=== PATIENT | male | born 1980 | race Two or more races ===

== ENCOUNTER 2025-05-24 12:22 | Inpatient (IN) | payer MEDICAID ==
[~2025-05-24] VITALS: Ht 167.6 cm; Wt 84.0 kg
--- NOTE | 2025-05-24 13:16 | Physician Documentation ---
History of Present Illness ~ Chief Complaint: Rectal Bleeding Stated Complaint: RECTAL BLEEDING Time Seen by MD: 12:25 Mode of Arrival: EMS HPI This is a 45-year-old gentleman transferred to us from [facility]. He originally went to the outside facility with the complaints of dizziness, monocular vision loss. Also reported a proximally one year of rectal bleeding with the blood mixed with the stool. Denies any weight loss. The dizziness, lightheadedness, sensation of impending doom and near-syncope were new in the unusual for him. This occurred while he was driving. No focal deficits reported. No palliating or aggravating factors. Now resolved. With respect to her rectal bleeding he states that it has been persistent, getting worse. Has not has a chance to check it out. Per record reviewed from outside facility 45-year-old the male with no significant medical history, presenting to the emergency department with multiple complaints. Patient most notably has a had increased dizziness, possibly over the last month, but more noticeable over the last week. Patient has had mild intermittent rectal bleeding over the last month. He has significant other at bedside states that he had some rectal bleeding as far back as one year. However over the last week he has a began experiencing crampy abdominal pain that is significantly worse after eating. After eating he states it is diffuse bright red blood per rectum. He will have bowel movements and consists only of bright red blood. He has had progressive dizziness associated with the episodes. Four days ago he began having visual changes in his right eye. He thought it was related to swimming, denies any trauma. He states that he has a black out blurry vision to the lower half of his right visual field. He denies any lateralized weakness or numbness. Denies any coordination deficits of the gener ally dizziness. Denies any chronic alcohol use, chronic NSAID use. No hemoptysis. No fever or chills. No abdominal pain. At the outside facility patient has a received laboratory workup shows anemia with hemoglobin of 9.2. Metabolic panel was unremarkable. Troponin was negative. Coagulation panel was normal. Falling radiologic studies were done: Chest x-ray showed possible left midlung and 12 mm nodule versus rib nodule. CT of the abdomen and pelvis with contrast shows no active bleeding but the showed 7 cm rectal mass. No bowel obstruction. CT head without contrast shows mild all neurocysticercosis without any acute disease. Evidently patient had a protracted stay in the emergency department and had undergone MRI and MRA. MRA showed neck vessels without occlusion, dissection or readily apparent high-grade stenosis. MRI brain without contrast was also obtained showing no acute intracranial pathology. MRA brain also showed no vessel occlusion. The patient was transferred to us for GI consultation Medication Reconciliation Allergies: Coded Allergies: No Known Allergies (Unverified , 05/24/25) Review of Systems ROS 10 point review of systems was performed and unless noted above in HPI is negative for acute process/complaint. Physical Exam Vital Signs: Temperature: 98.3, Source: Oral, Heart Rate: 58, Respiratory Rate: 18, BP: 125/77, Pulse Oximetry: 98, Weight: 84.000 Physical Exam GENERAL: Awake, alert, oriented, GCS 15, no apparent distress, non-toxic appearing, answers questions, follows commands appropriately. HEENT: Atraumatic, normocephalic, pupils equal, extraocular muscles intact, sclerae anicteric, mucus membranes moist, oropharynx is clear, no stridor. NECK: supple, full active range of motion, trachea midline, no thyromegaly, no lymphadenopathy, no JVD. CARDIOVASCULAR: regular rate/rhythm, no murmurs/gallops/rubs, Pulses are 2+ in all extremities and symmetric. Capillary refill less than 2 seconds. PULMONARY: Nonlabored, good air movement ,no respiratory distress, speaking in full sentences, clear to auscultation bilaterally, no wheezing, no ronchi, no rales, no accessory muscle use. GASTROINTESTINAL: Soft, non-tender, non-distended, normal active bowel sounds, no organomegaly, no pulsatile masses, no CVA tenderness. NEUROLOGIC: Lucid with normal mental status. Normal facial symmetry. Moves all extremities symmetrically and with purpose. No truncal ataxia. Speech is fluid without evidence of dysarthria or aphasia, no focal deficits appreciated. MUSCULOSKELETAL: There is full range of motion of all extremities. There is no joint pain or joint swelling or joint erythema. There is no muscle pain or tenderness or swelling. EXTREMITIES: warm, well-perfused, no cyanosis, no clubbing, no edema, no acute deformities. Skin: warm, dry, no rashes or lesions, no jaundice, no petechiae orpurpura. No ecchymosis. PSYCHIATRIC: Normal affect, normal insight, normal concentration. Focused exam: [] No guarding or rebound Progress Results/Orders Results/Orders Vital Signs 05/24/25 05/24/25 12:24 12:29 Temp 98.3 Pulse 58 Resp 18 18 B/P (MAP) 125/77 Pulse Ox 98 Medical Decision Making Findings Facility Status: ED Holds, RME process The plan was discussed with the patient, who demonstrates clear understanding of the plan and is in agreement with the plan unless otherwise noted in the chart. All questions have been answered, all concerns were addressed unless otherwise documented. I was available throughout their ED stay for frequent reassessment and questions. Differential Diagnoses (considered and possible or likely): [Rectal mass, concerning for malignancy, anemia, not requiring transfusion, no evidence of hemorrhagic shock, monocular vision loss in the right eye, neurocysticercosis] ??Differential Diagnoses (considered and unlikely, not requiring evaluation currently): [No evidence of traumatic injury] MDM Data Please see HPI for the following: Independent Historians and external Records Review. Historian: [Patient] Independent Historians: ?[Extensive record review from the outside facility] Medication Management: [Reviewed medication list] Social History and determinants: [Reviewed] Please see the body of the note for the following: Any independent interpretations of ECG, imaging studies. All vitals signs/haemodynamics, ordered tests were independently reviewed and interpreted by myself. Nursing triage complaint and vitals reviewed, additional nursing notes were reviewed as available and I agree unless otherwise noted or documented in contradiction in the chart Vital Signs: Independently reviewed Labs: Independently interpreted Imaging: Independently interpreted Old Medical Records: Independently reviewed, see HPI for relevant summary and information Pulse Oximetry: [98%] interpreted as [normal on room air] by me [Door Opener: [Regular Rate, Regular rhythm, no ectopy, NSR] reviewed and interpreted by me] Additionally notably showing: [Hemodynamically stable] Tests considered but not ordered include: [Repeat imaging does not appear to be necessary] Social Determinants of Health Impact: Patient was evaluated in [facility] [place] access to healthcare due to below par ratio of patient to medical providers. [] Comorbid Conditions Impacting Present Evaluation and Care/Treatment: [None k nown] Management Discussions with other Healthcare Providers: [Hospitalist regarding admission] Treatment and Disposition Medication Management (Given or considered): [Transfusion does not appear to be necessary]. See EMR for details Consideration for Hospitalization/Escalation/Deescalation of Care: Admission for observation has been considered, hand appears to be necessary for further evaluation of his rectal bleeding, mass, GI consultation ?ED Course:?[No clinical deterioration] ?Shared decision making:?[] Code status:?FULL Please see the full Electronic Medical Record for full details of nursing documentation, medications list, other records of complete past medical history and conditions, vital signs, laboratory studies, and any radiologic study in terpretations by radiologists. Portions of this note were completed using [employer] dictation software and as a result there may exist minor errors in spelling. I have reviewed elements of past family and social history and agree as included in note. Departure Disposition: 09 ADMITTED INPATIENT Admitted to Inpatient Unit: to hospitalist Impression: Primary Impression: Lower GI bleed Additional Impressions: Bright red blood per rectum Rectal mass Neurocysticercosis Visual field defect of right eye Condition: Stable Referrals: NO PRIMARY CARE PROVIDER (PCP) Signature Scribe Signature: No scribe Attestation: This note accurately reflects clinical decisions, work performed by myself, DO BEHZAD Lawson NICHOLAS M DO May 24, 2025 13:16
[2025-05-24 13:47] LABS: MEAN PLATELET VOLUME 9.4 FL (7.4-10.4); RED CELL DISTRIBUTION WIDTH 17.3 % (11.5-14.5)
[2025-05-24] MEDS ORDERED: ondansetron/PF 4mg/2ml inj IV PRN (14:05)
[2025-05-24] MEDS ORDERED: magnesium sulf-water 2g/50mL 50 ML IV PRN (14:05)
[2025-05-24] MEDS ORDERED: magnesium sulf-water 4G/100mL 100 ML IV PRN (14:05)
[2025-05-24] MEDS ORDERED: magnesium Cl slow-release 64mg tablet PO PRN (14:05)
[2025-05-24] MEDS ORDERED: potassium Cl 40MEQ/1/2NS 520ml 520 ML IV PRN (14:05)
[2025-05-24] MEDS ORDERED: potassium Cl 20 mEq SR tablet PO PRN ×2 (14:05)
[2025-05-24 14:14] LABS: APTT 26 SECONDS (22-32); INR 1.1 INR
[2025-05-24] MEDS: PEG 3350/Na sulf,bicarb,Cl/KCl oral sol 4 liter bottle PO ONE ×2 (14:14→14:35)
[2025-05-24 14:17] LABS: CREATININE 0.95 MG/DL (0.60-1.10); PHOSPHORUS 3.7 MG/DL (2.3-4.5); TOTAL CARBON DIOXIDE 26.9 MMOL/L (24-32); eCRCL 88 ML/MIN; eGFR 85 ML/MIN
[2025-05-24] MEDS: normal saline 1000ml 1,000 ML IV SCH (14:24)
--- NOTE | 2025-05-24 14:53 | HISTORY AND PHYSICAL-Residence ---
History & Physical Providers to CC Resident Creating Document: MAYRA JACKSON RES CC: ISABELLE EUCEDA MD ~ History of Present Illness Primary Medical Doctor: none Reason for Admit\Complaint: hematochezia for a month History of Present Illness 45-year-old male with history of gout came as a transfer from [facility] for further evaluation of hematochezia. Patient symptoms started with one month of blood in stools, for the past one month he also noticed the is having 3-4 episodes of bowel movements a day every time after food intake. Stated blood in stools usually blood mixed in his stools, no pain during defecation and denies hematemesis/melena. Denies abdominal pain or tenesmus or fever. No Previous history of IBD, no recent history of travel. Denies family history of colon cancer. no Recent antibiotic use For the past three days he also noticed he is getting very lethargic, tired, and lightheadedness. Yesterday when he was swimming he noticed vision loss in the right eye, currently he still has vision loss in the lower field of the right eye. He denies any weakness of the extremities. No other neurological complaints. For these complaints he went to [facility] where he had undergone CT brain which showed chronic neurocysticercosis and MRI brain and MRA were normal. CT abdomen/pelvis showed rectal mass and patient is transferred here for further evaluation. Patient was born in the [facility] and he lived in [place] for sometime. He said he has never been to any [place]. He had no previous history of seizures Allergies: Coded Allergies: No Known Allergies (Unverified , 05/24/25) Past Medical History Past Medical History Gout taking colchicine, prednisolone and allopurinol Past Surgical History Surgical History Comment None Past Social History Social History Comment Nonsmoker, occasional alcohol use, denies illicit drug use, lives in [place] ROS ROS ROS Constitutional: Positive for fatigue, dizziness, decreased appetite HEENT: No blurring of the vision, No sore throat, epistaxis, tinnitus Cardiovascular: No chest pain/discomfort, palpitations, syncope. No pedal edema Respiratory: No sob, cough,, hemoptysis Gastrointestinal: Positive for hematochezia No abdominal pain, nausea, vomiting. No diarrhea, constipation, melena. Genitourinary: No frquency, urgency, incontinence, nocturia. No dysuria, hematuria Musculoskeletal: No arthralgia, myalgia Endocrine: No polydipsia, polyuria. No heat or cold intolerance Neurologic: No headache, vertigo. No weakness, numbness or tingling of extremities Psychiatric: No hallucinations/delusions, no anhedonia, no suicidal ideation\ Hematologic: No bleeding or bruises Reviewed in full. All negative except for pertinent positives in HPI Exam Vitals: Vital Signs Date Time Temp Pulse Resp B/P (MAP) Pulse Ox O2 Delivery O2 Flow Rate FiO2 05/24/25 12:29 18 05/24/25 12:24 98.3 58 98 General: General: Adult male, AAO x4, not in apparent distress Head: Normocephalic with an atraumatic Eyes: Pupils- 3mm, reacting to light, conjunctiva- anicteric Nose and throat: No polyps, septum- normal, no mucosal ulcers Neck: Supple, no lymphadenopathy, no carotid bruit Respiratory: No use of accessory muscles of respiration, Bilateral normal vesiscular breath sounds heard. No wheeze, rhochi or creps Cardiac: S1-S2 heard, rythm regular, no gallop/murmur Abdomen: non distended, no tenderness, no organomegaly, bowel sounds- heard Extremities: no clubbing, no pedal edema, no deformities, peripheral pulses- 2+ Skin: warm and dry, no rash, no purpura Neuro: Right eye lower field vision loss, No focal deficit, gross other cranial nerve exam- normal Diagnostic Data Last Recorded Lab Results: 05/24/25 1335 05/24/25 1335 Diagnostic Data: Laboratory Tests Test 05/24/25 13:35 Prothrombin Time 11.4 SECONDS (9.0-12.0) INR International Normalized Ratio 1.1 INR Activated Partial Thromboplast Time 26 SECONDS (22-32) Coagulation Comments Advance Care Planning Advanced Care plannin - 30 Minutes (Code status is discussed with him and he opted for full code) Additional Plan Hematochezia Rectal mass -presented with one month of hematochezia, painless -ESR and CRP-normal -likely suspect noninflammatory causes -CT abdomen/pelvis showed 7 x 6 x 5 cm rectal mass, normal liver -Dr. Falcon, GI consulted, recommended GoLYTELY prep and colonoscopy with rectal mass biopsy tomorrow. Appreciate recs Microcytic hypochromic Anemia -H&H 9.7/, low MCV MCH and increased RDW -suspect iron-deficiency secondary to bleeding -anemia might be likely causing dizziness, lightheadedness and fatigue -follow up on iron profile -follow up on peripheral smear -monitor H&H and if hemoglobin is less than seven, we will plan for PRBC transfusion Right monocular vision loss Chronic neurocysticercosis -presented with monocular vision loss which was partially improved, CT brain normal, MRI showed chronic neurocysticercosis, no infarct and MR angiogram of the head and neck was normal. -follow up on 2D echo -continue neuro checks -patient needs ophthalmology evaluation -we will consult Dr. Yuan, ID for opinion on chronic neurocysticercosis Probable lung nodule -chest x-ray done at the outside hospital showed possible left lung 12 mm nodule versus 7th rib shadow, will repeat cxr -no h/o smoking Code Status: Full code Line/tube: PIV DVT prophylaxis: SCD Nutrition: Clear liquid diet, NPO after midnight PT: No Prognosis: Guarded Disposition: Continue care in ortho floor Mayra Jackson MD IM PGY-3 resident Date of Service: May 24, 2025 Billing Provider: ISABELLE EUCEDA MD,MAYRA, RES May 24, 2025 14:53
[2025-05-24 15:06] LABS: % IRON SATURATION 4 % (11-46)
[2025-05-24] MEDS: PERFLUTREN PROTEIN-A MICROSPHR (Optison) 0.22 MG/ML 3ML VIAL IV ONE (15:16)
[2025-05-24 15:23] LABS: LEUKOCYTE ESTERASE ,URINE NEGATIVE (Neg); NITRITES, URINE NEGATIVE (Neg); OCCULT BLOOD,URINE NEGATIVE (Neg)
[2025-05-24 15:29] LABS: UA COLLECTION TYPE VOIDED
--- NOTE | 2025-05-24 15:42 | RADIOLOGY REPORT ---
CHEST RADIOGRAPH Indication: left lung nodule Technique: Single frontal view of the chest was obtained Comparison: None FINDINGS: Lines and Tubes: None Lungs: 11 mm left upper lobe lung nodule. Pleura: No effusion. No pneumothorax. Cardiomediastinal contours: Unremarkable Bones: No acute osseous abnormality. IMPRESSION: 11 mm left upper lobe lung nodule. CT suggested
[2025-05-24 15:46] LABS: URINE AMPHETAMINE SCREEN NEGATIVE (Neg); URINE BARBITUATE SCREEN NEGATIVE (Neg); URINE BENZODIAZEPINES SCREEN NEGATIVE (Neg); URINE CANNABINOID SCREEN NEGATIVE (Neg); URINE COCAINE SCREEN NEGATIVE (Neg); URINE METHADONE SCREEN NEGATIVE (Neg); URINE OPIATE SCREEN NEGATIVE (Neg); URINE PHENCYCLIDINE SCREEN NEGATIVE (Neg)
[2025-05-24] MEDS ORDERED: iohexol 300mg/ml 100ml inj. ONE (17:49)
[2025-05-24 18:00] VITALS: BP 127/74; PULSE 50; RESP 16; TEMP 97.8; O2SAT 100
--- NOTE | 2025-05-24 18:26 | RADIOLOGY REPORT ---
EXAM: CT CT CHEST W/ IV CONTRAST History: left lung mass Comparison Study: None TECHNIQUE: A digital scooping machine tender image was obtained. During the uneventful, intravenous administration of c ontrast material, multislice data acquisition was obtained through the chest. The data set was subseq uently reconstructed into axial, coronal, and sagittal images. Radiation Dose : CTDI vol 17.62 mGy, DLP 695.07 mGy*cm. Findings: Lungs: Left upper lobe calcified granuloma. The lungs are otherwise clear. Pleura: Unremarkable Heart/Great vessels: No cardiomegaly or pericardial effusion. Mediastinum: Unremarkable Soft tissues/Bones: Unremarkable. Bone island in the vertebral body of T8. The partially visualized upper abdomen is within normal limits. Impression: 1. No acute cardiopulmonary disease. 2. Left upper lobe calcified granuloma.
[2025-05-24] MEDS ORDERED: NO HOME MEDS (19:52)
[2025-05-24 20:00] VITALS: RESP 16; O2SAT 100
[2025-05-24] MEDS: docusate sod 100mg capsule PO SCH (20:00)
[2025-05-24] MEDS: K and/or MAG REPLACEMENT MC SCH (20:00)
[2025-05-24 22:00] VITALS: BP 104/68; PULSE 57; RESP 16; TEMP 97.8; O2SAT 100
[2025-05-25] VITALS (16 sets, daily range): BP systolic 82–117; BP diastolic 45–69; PULSE 10–64; RESP 14–60; TEMP 97.9–98.7; O2SAT 97–100
[2025-05-25 03:41] LABS: MEAN PLATELET VOLUME 9.8 FL (7.4-10.4); RED CELL DISTRIBUTION WIDTH 17.4 % (11.5-14.5)
[2025-05-25 03:51] LABS: INR 1.2 INR
[2025-05-25 04:06] LABS: CHOL/HDL RATIO 4.7 (0.00-4.99); CREATININE 0.92 MG/DL (0.60-1.10); LDL CHOLESTEROL 109 MG/DL (50-100); TOTAL CARBON DIOXIDE 27.3 MMOL/L (24-32); eCRCL 91 ML/MIN; eGFR 89 ML/MIN
--- NOTE | 2025-05-25 04:06 | CONSULTATION ---
DATE OF CONSULTATION: 05/24/2025 DICTATING PHYSICIAN: Ramakrishna Hernandez MD REASON FOR CONSULTATION: Rectal bleeding and an abnormal CT scan. HISTORY OF PRESENT ILLNESS: The patient is 45 years old who apparently has been having rectal bleeding with every bowel movement for the past month. He described this as bright red blood. He had not sought medical attention until yesterday. Yesterday, he felt dizzy and weak, and he came to the [facility] in [place] where he was worked up and sent over here. He had a CT scan of the abdomen which showed a 7 x 5 x 3 cm mass; otherwise, the CT scan of the abdomen was normal. CT of the head was also normal. He is admitted for evaluation of GI bleeding and possible rectal mass. PAST MEDICAL HISTORY: Is essentially noncontributory. FAMILY HISTORY: Noncontributory. PERSONAL HISTORY: Noncontributory. REVIEW OF SYSTEMS: A 12-point review of systems same as history of present illness. PHYSICAL EXAMINATION: GENERAL: He is awake, alert, appears to be in no apparent distress. VITAL SIGNS: Normal. HEART: Normal. LUNGS: Normal. ABDOMEN: Soft, nontender. No masses. No organomegaly. Bowel sounds are present. EXTREMITIES: Reveal no clubbing, cyanosis, or edema. RECTAL: Deferred. LABORATORY VALUES: Hemoglobin 9.7, MCV 72, platelet count 250. Coagulation profile normal. Chemistries essentially unremarkable, and as mentioned earlier, CT scan done in [place] did show a rectal mass. IMPRESSION: A 45-year-old gentleman comes in with rectal bleeding for about a month and seems to have a rectal mass as per imaging study. RECOMMENDATIONS: Colonoscopy to further evaluate, confirm, and obtain biopsy to rule out rectal cancer. The risks and benefits explained, understands and wishes to proceed. GoLYTELY prep was ordered to be started right away, so he can be ready for the colonoscopy tomorrow. Ramakrishna Hernandez MD TID: [id number] RECEIPT: [id number] MARTIN/VICKY
[2025-05-25] MEDS ORDERED: ondansetron/PF 4mg/2ml inj IV PRN (09:20)
[2025-05-25] MEDS ORDERED: midazolam 1 mg/ML 2ml injection ONE (09:50)
[2025-05-25] MEDS ORDERED: fentaNYL/PF 50MCG/1 ML 2ML syringe ONE (09:50)
[2025-05-25] MEDS ORDERED: simethicone 40mg/0.6ml oral drops 30ml ONE (09:54)
[2025-05-25] MEDS ORDERED: propofol inj 20 ML IV ONE ×2 (10:36)
[2025-05-25] MEDS: ringers solution, lacted 1,000 ML IV SCH (10:37)
--- NOTE | 2025-05-25 12:00 | CONSULTATION REPORT - RESIDENT ---
Consult Providers to CC Resident Creating Document: CLAUDIO IVORY CC: PEYTON YUAN MD History of Present Illness Reason for Admit\Complaint: Bloody stools History of Present Illness Patient is a 45-year-old male with no significant past medical history other than gout who came to the ED due to bloody stools. Patient reports that he has been experiencing daily episodes of bloody stools for about one month, he denies any abdominal pain, nausea, vomiting, diarrhea, fever or chills. In addition, patient reports that for the past 2 weeks he has been experiencing episodes of dizziness, described as spinning sensation, as well as vision loss in in the lower half of his right eye. He denies similar symptoms in the past, he also denies headaches or ocular pain or any focal weakness. Patient underwent CT scan of the head at [facility], which apparently showed multiple calcified lesions possibly consistent with neurocysticercosis. CT scan of the chest also showed a calcified lesion on the left. ID has been consulted for further evaluation and management in this regard. Allergies: Coded Allergies: No Known Allergies (Unverified , 05/24/25) Home Medications Home Medications Active Reported No Home Medications (Home Med List) Each Past Medical History Past Medical History Gout Past Surgical History Surgical History Comment None Past Social History Social History Comment Nonsmoker, occasional alcohol use, denies illicit drug use, lives in [facility] All systems were reviewed and found negative except for pertinent positives mentioned in HPI Exam Vitals: Vital Signs Date Time Temp Pulse Resp B/P (MAP) Pulse Ox O2 Delivery O2 Flow Rate FiO2 05/25/25 11:43 Room Air 05/25/25 11:10 11 53 97/63 (74) 98 0.0 05/25/25 10:24 97.5 General: General: awake, alert oriented to place, time, and person HEENT: No pallor present, no icterus, moist mucous membranes Neck: No masses and tenderness Resp: Unlabored. Lungs clear to auscultation bilaterally. Chest: Normal expansion Cardiovascular: Regular Rate and rhythm, normal S1 and S2 without murmur, rub or gallop Abdomen: Soft and nontender, no organomegaly, no guarding and rigidity, bowel sounds present Neuro: No focal weakness in the upper and lower limb muscles, power of the muscles 5/5 bilateral upper and lower extremities, normal reflexes bilaterally. Cranial nerves intact Extremities: No cyanosis,clubbing or edema Skin: Warm and Dry. No lesions Psych: Normal affect Diagnostic Data Last Recorded Lab Results: 05/25/2522405/25/25224 Diagnostic Data: Laboratory Tests Test 05/24/25 13:35 05/25/25 02:25 Activated Partial Thromboplast Time 26 SECONDS (22-32) Prothrombin Time 11.8 SECONDS (9.0-12.0) INR International Normalized Ratio 1.2 INR Coagulation Comments Additional Plan Brain calcified lesions, possible old neurocysticercosis Acute visual impairment, right eye Left upper lung calcified lesion Rectal bleeding Rectal mass Patient with a 4-week history of rectal bleeding and possibly unrelated right eye partial vision loss No known history of neurocysticercosis and questionable history of travel abroad during childhood Does report pork consumption throughout his life CT head shows a few cortical calcifications CT chest shows left upper lobe calcified granuloma Lung calcified nodule is an unusual finding for cysticercosis, therefore, will rule out TB and coccidioidomycosis In view of acute vision impairment, will also rule out STDs, including HIV and Syphilis Taenia Solium serology ordered Patient will need ophthalmology Going for colonoscopy today by Dr. Falcon No need for any specific antimicrobial treatment at this time. Will decide further management based on above tests. Above plan discussed in detail with Dr. Yuan Disposition: Continue management per gastroenterology. Will await further testing. No further treatment necessary at this point from ID standpoint Claudio Cotter MD Internal Medicine Resident PGY-2 Date of Service: May 25, 2025 Billing Provider: PEYTON YUAN MD, LEONARDO LUIS May 25, 2025 12:00 PEYTON YUAN MD May 25, 2025 21:41
--- NOTE | 2025-05-25 18:37 | PROGRESS NOTE- Residence ---
Progress Note - Resident Providers to CC Resident Creating Document: OLI JACKSON RES CC: ISABELLE EUCEDA MD ~ Antibiotic Timeout Antibiotic Ordered?: No Subjective Patient is seen today morning he had undergone a colonoscopy which showed rectal mass. Informed to the patient and his fiancee regarding the findings. And referral was sent to [facility]. Objective Vital Signs Date Time Temp Pulse Resp B/P (MAP) Pulse Ox O2 Delivery O2 Flow Rate FiO2 05/25/25 12:30 57 107/64 (78) 05/25/25 11:43 Room Air 05/25/25 11:10 53 98 0.0 05/25/25 10:24 97.5 Result Diagram: 05/25/2522405/25/25224 General: Adult male, AAO x4, not in apparent distress Head: Normocephalic with an atraumatic Eyes: Pupils- 3mm, reacting to light, conjunctiva- anicteric Nose and throat: No polyps, septum- normal, no mucosal ulcers Neck: Supple, no lymphadenopathy, no carotid bruit Respiratory: No use of accessory muscles of respiration, Bilateral normal vesiscular breath sounds heard. No wheeze, rhochi or creps Cardiac: S1-S2 heard, rythm regular, no gallop/murmur Abdomen: non distended, no tenderness, no organomegaly, bowel sounds- heard Extremities: no clubbing, no pedal edema, no deformities, peripheral pulses- 2+ Skin: warm and dry, no rash, no purpura Neuro: Right eye lower field vision loss, No focal deficit, gross other cranial nerve exam- normal Coagulation Studies Laboratory Tests Test 05/24/25 13:35 05/25/25 02:25 Activated Partial Thromboplast Time 26 SECONDS (22-32) Prothrombin Time 11.8 SECONDS (9.0-12.0) INR International Normalized Ratio 1.2 INR Coagulation Comments Assessment Assessment 45-year-old male with history of gout came as interferon satiety transfer from [facility] for further evaluation of hematochezia for a month Plan Plan Hematochezia Rectal mass- malignancy unable to exclude -presented with one month of hematochezia, painless -ESR and CRP-normal -likely suspect noninflammatory causes -CT abdomen/pelvis showed 7 x 6 x 5 cm rectal mass, normal liver -colonoscopy done by Dr. Falcon on 05/25/2025, showed rectal mass near the sphincter and biopsy was done. -referral sent to [facility] for radiation for rectal mass Microcytic hypochromic Anemia/iron-deficiency anemia secondary to lower GI bleed -H&H did not 0.9/28, low MCV MCH and increased RDW -suspect iron-deficiency secondary to bleeding -anemia might be likely causing dizziness, lightheadedness and fatigue -iron low, TIBC high, transferrin saturation low, with ferritin of six likely iron-deficiency anemia -monitor H&H and if hemoglobin is less than seven, we will plan for PRBC transfusion -started on IV Ferrlecit 125 mg once daily -start on p.o. iron at the time of discharge Right monocular vision loss Chronic neurocysticercosis -presented with monocular vision loss which was partially improved, CT brain normal, MRI showed chronic neurocysticercosis, no infarct and MR angiogram of the head and neck was normal. -spoke with Dr. Gutierrez Ophthalmology and he recommended patient needs outpatient ophthalmology evaluation to exclude retinal detachment -Dr. Yuan ID consulted for neurocysticercosis, recommended tinea Sodium serology and HIV and syphilis were acute vision impairment Left lung calcified lung nodule -follow up on TB and coccidioidomycosis serologies as per ID recommendations Code Status: Full code Line/tube: PIV DVT prophylaxis: SCD Nutrition: low Fiber diet PT: No Prognosis: Guarded Disposition: Continue care in [facility], [place] tomorrow on p.o. iron and follow up with [facility], pending biopsy Oli Jackson MD IM PGY-3 resident Date of Service: May 25, 2025 Billing Provider: ISABELLE EUCEDA MD, HARIVARSHA, RES May 25, 2025 18:37
[2025-05-25] MEDS: sodium ferric gluc complex inj 125 MG in normal saline 100ml IV soln 100 ML IV SCH (18:55)
[2025-05-26 05:14] LABS: MEAN PLATELET VOLUME 9.9 FL (7.4-10.4); RED CELL DISTRIBUTION WIDTH 17.2 % (11.5-14.5)
[2025-05-26 05:20] LABS: INR 1.2 INR
[2025-05-26 05:38] LABS: CREATININE 0.90 MG/DL (0.60-1.10); TOTAL CARBON DIOXIDE 26.6 MMOL/L (24-32); eCRCL 93 ML/MIN; eGFR > 90 ML/MIN
[2025-05-26] MEDS ORDERED: DOCU100C40 PO (07:39)
[2025-05-26] MEDS ORDERED: FERR324T4 PO (07:39)
[2025-05-26] MEDS ORDERED: ASCO500C17 PO (07:39)
[2025-05-26 08:00] VITALS: RESP 16; O2SAT 98
[2025-05-26 10:24] LABS: HIV ANTIBODY 1&2 RAPID NON-REACTIVE (Neg)
--- NOTE | 2025-05-26 14:52 | PROGRESS NOTE- Residence ---
Progress Note - Resident Providers to CC Resident Creating Document: CLAUDIO IVORY CC: PEYTON YUAN MD ~ Antibiotic Timeout Antibiotic Ordered?: No Subjective Patient was seen and examined this morning. He reports to be feeling well. Denies any significant abdominal pain. Continues with right eye vision changes Objective Vital Signs Date Time Temp Pulse Resp B/P (MAP) Pulse Ox O2 Delivery O2 Flow Rate FiO2 05/26/25 08:00 16 98 Room Air 0.0 05/25/25 22:00 98.6 58 104/62 (76) Result Diagram: 05/26/2531605/26/25316 General: awake, alert oriented to place, time, and person HEENT: No pallor present, no icterus, moist mucous membranes Neck: No masses and tenderness Resp: Unlabored. Lungs clear to auscultation bilaterally. Chest: Normal expansion Cardiovascular: Regular Rate and rhythm, normal S1 and S2 without murmur, rub or gallop Abdomen: Soft and nontender, no organomegaly, no guarding and rigidity, bowel sounds present Neuro: No focal weakness in the upper and lower limb muscles, power of the muscles 5/5 bilateral upper and lower extremities, normal reflexes bilaterally. Right eye with deficient visual field at medial lower quadrant. Left eye visual field appears to be normal. Extremities: No cyanosis,clubbing or edema Skin: Warm and Dry. No lesions Psych: Normal affect Coagulation Studies Laboratory Tests Test 05/24/25 13:35 05/26/25 03:17 Activated Partial Thromboplast Time 26 SECONDS (22-32) Prothrombin Time 11.8 SECONDS (9.0-12.0) INR International Normalized Ratio 1.2 INR Coagulation Comments Plan Plan Brain calcified lesions, possible old neurocysticercosis Acute visual impairment, right eye Left upper lung calcified lesion Rectal bleeding Rectal mass Patient with a 4-week history of rectal bleeding and possibly unrelated right eye partial vision loss No known history of neurocysticercosis and questionable history of travel abroad during childhood Does report pork consumption throughout his life CT head shows a few cortical calcifications CT chest shows left upper lobe calcified granuloma Lung calcified nodule is an unusual finding for cysticercosis, therefore, will rule out TB and coccidioidomycosis. Awaiting serology In view of acute vision impairment, will also rule out STDs, including HIV and Syphilis. HIV is negative Taenia Solium serology ordered Underwent colonoscopy which revealed a large, likely cancerous rectal mass. Awaiting biopsy results No need for any specific antimicrobial treatment at this time. Will decide further management based on above tests. Ok to DC from ID standpoint. Will call patient with serology results Patient is being referred to [facility] Will see Dr Gutierrez on outpatient Above plan discussed in detail with Dr. Yuna Disposition: Continue management per gastroenterology. No further treatment necessary at this point from ID standpoint Claudio Cotter MD Internal Medicine Resident PGY-2 Date of Service: May 26, 2025 Billing Provider: PEYTON YUAN MD, LEONARDO LUIS May 26, 2025 14:52 PEYTON YUAN MD May 26, 2025 18:08
--- NOTE | 2025-05-26 14:52 | DISCHARGE SUMMARY-Residence ---
Discharge Summary Providers to CC Resident Creating Document: OLI JACKSON RES CC: ISABELLE AVILA MD ~ Discharge Summary Assessment 45-year-old male with history of gout came as interfacility transfer from [facility] for further evaluation of hematochezia for a month Admission Diagnosis: hematochezia Hospital Course DATE OF ADMISSION: 05/24/2025 DATE OF DISCHARGE: 05/26/2025 Discharge Diagnosis\Comment: Hematochezia Rectal mass- malignancy unable to exclude Microcytic hypochromic Anemia/iron-deficiency anemia secondary to lower GI bleed Right monocular vision loss Chronic neurocysticercosis Left lung calcified lung nodule Operations\Procedures: Colonoscopy by Dr. Falcon on 05/25/2025 Consultants: Dr. Falcon, gastroenterology Dr. Yuan, infectious Disease Dr. Gutierrez, ophthalmology Complications: none Condition on DC: Stable New Medications: Ascorbic Acid (Vitamin C) 500 Mg Capsule 1 CAP PO DAILY for 30 Days, #30 CAP 0 Refills Ferrous Sulfate (Ferrous Sulfate) 324 Mg (65 Mg Iron) Tablet.dr 1 TAB PO DAILY for 30 Days, #30 TAB 0 Refills Docusate Sodium (Docusate Sodium) 100 Mg Caps 100 MG PO BID PRN for constipation for 10 Days, #20 CAP Continued Medications: Home Med List (No Home Medications) Each Discharge Summary: 45-year-old male with history of gout came as a transfer from [facility] for further evaluation of hematochezia for a month. Hospital course -for hematochezia and rectal mass patient had undergone CT abdomen/pelvis with IV contrast at the transferred facility which showed 7 x 6 x5 cm rectal mass, and normal liver, patient had undergone colonoscopy by Dr. Falcon on 05/25/2025 which showed rectal mass near the sphincter and biopsy results were pending. As the rectal mass is likely to be malignancy we have sent a referral to [facility], and patient will be follow up with the biopsy report. -also found to be having anemia with hemoglobin in the range of 8-9, and iron indices is in favor of iron-deficiency anemia, he received two doses of IV iron transfusion and he is discharged on p.o. iron and is recommended to repeat CBC in 1-2 weeks -his chest x-ray showed left lung nodule on CT done showed left lung calcified granuloma. And Infectious Disease recommended workup with tuberculosis, and coccidioidomycosis, the results are still pending at the time of discharge -he had monocular vision loss, for which CT brain showed no acute hemorrhage, MRI no acute infarction MR angiogram was normal. --However patient was incidentally found to have calcified granulomas in the CT brain which is in favor of chronic neurocysticercosis. ID recommendations sought and recommended tinea Sodium serology, HIV and syphilis which were pending at the time of discharge -We consulted Dr. Gutierrez Ophthalmology for the right monocular vision loss and he and he will see the patient today on the day of discharge in his office for complete visual examination. Dr. Avila personally called Dr. Gutierrez, and made margarita wed the appointment is available today. Patient is hemodynamically stable at the time of discharge and his physical examination is as follows General: Adult male, AAO x4, not in apparent distress Head: Normocephalic with an atraumatic Eyes: Pupils- 3mm, reacting to light, conjunctiva- anicteric Nose and throat: No polyps, septum- normal, no mucosal ulcers Neck: Supple, no lymphadenopathy, no carotid bruit Respiratory: No use of accessory muscles of respiration, Bilateral normal vesiscular breath sounds heard. No wheeze, rhochi or creps Cardiac: S1-S2 heard, rythm regular, no gallop/murmur Abdomen: non distended, no tenderness, no organomegaly, bowel sounds- heard Extremities: no clubbing, no pedal edema, no deformities, peripheral pulses- 2+ Skin: warm and dry, no rash, no purpura Neuro: Right eye lower field vision loss, No focal deficit, gross other cranial nerve exam- normal Labs at discharge -H&H-8.3/26.6, WBC 6, platelets 205 -serum iron 15, TIBC 425, transferrin saturation four, ferritin six -CMP sodium 142, potassium 3.8, Blood urea nitrogen 13, creatinine 0.9 Bilirubin 0.2, AST/ALT/ALP 06/30/2066 Total protein 6.1, albumin 3.1 Triglycerides 88, total cholesterol 174, LDL 109, HDL 37 CT chest done on 05/24 Impression: 1. No acute cardiopulmonary disease. 2. Left upper lobe calcified granuloma. Echocardiogram done on 05/26, Ejection fraction 70-75% mildly dilated RV, no valvular abnormalities Pending labs at discharge, RPR, Coccidioides, HIV RNA, rectal mass biopsy His discharge medications can be found above, and he is sent home with the following recommendations You Need to establish care with a PCP as soon as possible. In the meanwhile you can go to [facility] urgent healthcare, and establish care with them and you have to check your CBC in 1-2 weeks You are having iron-deficiency anemia and we prescribed you iron pills, along with vitamin-C pills Take iron rich food like spinach, dates Take Colace as needed for constipation We sent a referral to [facility] oncology for rectal mass # [phone] Dr. Falcon, GI will call you up, and follow up with the biopsy results, If you don't hear from her contact [facility] department to contact her [phone] Please follow up with Dr. Gutierrez, ophthalmology for the right eye vision loss phone # [phone] Keep yourself well hydrated Return to the ER in case of any excessive bleeding *Problems/Diagnosis: (1) Lower GI bleed Status: Acute (2) Rectal mass Status: Acute (3) Neurocysticercosis Status: Acute (4) Visual field defect of right eye Status: Acute Total Time Spent on D/C: > 30 Minutes Date of Service: May 26, 2025 Billing Provider: ISABELLE AVILA MD, HARIVARSHA, RES May 26, 2025 14:48
--- NOTE | 2025-05-26 16:30 | CARDIOLOGY REPORT ---
APPROVED REPORT EXAM: Comprehensive 2D, Doppler, and color-flow Echocardiogram with saline. Patient Location: 358B Blood Pressure: 107/64 mmHg Heart Rate: 56 bpm Indications CVA/TIA Dizziness NO INVESTOR RELATIONS ASSOCIATE NO Previous ECHO 2D Dimensions LA Diam2.9 cm IVSd 0.8 (0.7-1.1cm) LVDd 4.9 cm PWd 0.7 (0.7-1.1cm) IVSs 1.3 (0.8-1.2cm) LVDs 2.8 (2.5-4.0cm) PWs 1.3 (0.8-1.2cm) LVOT Diameter 1.96 (1.8-2.4cm) LVEF(%) 74.6 (>50%) IVC 15.21 mm FS (%) 43.6 % SV 84.1 ml CO 4.8 L/min M-Mode Dimensions Left Atrium(MM) 2.51 (2.5-4.0cm) Aortic Root 2.68 (2.2-3.7cm) Aortic Cusp Exc 1.96 (1.5-2.0cm) MV EPSS 0.8 (<0.5cm) Aortic Valve AoV Peak Efrain. 144.3 cm/s AoV VTI 25.4 cm AO Peak GR. 8.3 mmHg AO Mean GR. 4 mmHg LVOT VTI 22.70 cm LVOT Peak Efrain. 125.1 cm/s BOBBY(VTI)/BSA 2.69 cm2/m2 BOBBY (VTI) 2.69 cm2 Mitral Valve MV E Velocity 102.3 cm/s MV Peak Gr. 5 mmHg MV DECEL TIME 232 ms MV A Velocity 57.4 cm/s MV PHT 68 ms E/A Ratio 1.8 MVA (PHT) 3.24 cm2 MV QNnh035.6 cm/s TDI Lateral E' P. V15.26 cm/s E/Lateral E' 6.7 Tricuspid Valve TR P. Velocity 232 cm/s RAP ESTIMATE 10 mmHg TR Peak Gr. 22 mmHg RVSP 32 mmHg LEFT VENTRICLE Normal LV size and wall thickness. Overall systolic function is normal. Overall LVEF is 70-75%. RIGHT VENTRICLE Right ventricle is mildly dilated with adequate function. ATRIA The left atrium size is normal. AORTIC VALVE Trileaflet AV appears mildly sclerotic without stenosis. No insufficiency. MITRAL VALVE Mitral valve leaflets are mildly thickened with mild annular calcification. No stenosis. Trace regurg itation. TRICUSPID VALVE The tricuspid valve is normal in structure with trace regurgitation. PULMONIC VALVE The pulmonary valve is normal in structure with physiologic insufficiency. GREAT VESSELS The aortic root is normal in size. The IVC is normal in size and collapses >50% with inspiration. PERICARDIUM Normal pericardium. No effusion. Other Information Study Quality: Adequate Conclusion Overall LVEF is 70-75%. Normal LV size and wall thickness. Overall systolic function is normal. Right ventricle is mildly dilated with adequate function. Trileaflet AV appears mildly sclerotic without stenosis. No insufficiency. Mitral valve leaflets are mildly thickened with mild annular calcification. No stenosis. Trace regu rgitation. The tricuspid valve is normal in structure with trace regurgitation. The pulmonary valve is normal in structure with physiologic insufficiency. Normal pericardium. No effusion.
[2025-05-30 05:17] LABS: HIV-1 RNA Non Reactive (Non Reactive); HIV-2 RNA Non Reactive (Non Reactive)
== END 2025-05-26 13:10 | disposition home or self-care (01) | DRG 240 ==
LOC: ER 12:23 → ED HOLD 13:56 → SUR 3N 18:34
PROVIDERS: ADMIT Family Medicine; ATTEND Family Medicine
PROC: BW241ZZ Computerized Tomography (CT Scan) of Chest and Abdomen using Low Osmolar Contrast (ICD-10-PCS; 2025-05-24)
PROC: 0DBP8ZX Excision of Rectum, Via Natural or Artificial Opening Endoscopic, Diagnostic (ICD-10-PCS; 2025-05-25)
PROC: 0DBH8ZX Excision of Cecum, Via Natural or Artificial Opening Endoscopic, Diagnostic (ICD-10-PCS; principal; 2025-05-25 09:48)
DX: C20 Malignant neoplasm of rectum (principal); B69.0 Cysticercosis of central nervous system; H53.40 Unspecified visual field defects; R91.1 Solitary pulmonary nodule; D50.8 Other iron deficiency anemias; D12.0 Benign neoplasm of cecum
CPT/HCPCS: 36415; 45380; 45385; 71045; 71260; 80053; 80061; 80305; 81003; 82728; 83036; 83540; 83550; 83735; 84100; 84466; 84484; 85025; 85610; 85651; 85730; 86140; 86592; 86703; 86885; 86900; 86901; 87081; 87535; 87538; 93306; 99285; C1889; G0378; J2250; J2704; J2916; J3010; J7030; Q9967